=== PATIENT | male | born 1995 | race Caucasian/White ===

== ENCOUNTER 2023-12-29 06:44 | Emergency (ER) | payer OTHER ==
[2023-12-29 08:02] LABS: BILIRUBIN,URINE NEGATIVE (NEGATIVE); GLUCOSE,URINE NORMAL (NORMAL); KETONES,URINE NEGATIVE (NEGATIVE); LEUKOCYTE ESTERASE,URINE SMALL (NEGATIVE); NITRITE,URINE NEGATIVE (NEGATIVE); OCCULT BLOOD,URINE NEGATIVE (NEGATIVE); PROTEIN,URINE NEGATIVE (NEGATIVE); UROBILINOGEN,URINE NORMAL (NEGATIVE)
[2023-12-29 08:02] LABS: HEMATOCRIT 43.5 % (38.3-50.1); MEAN CORPUSCULAR HGB CONC 34.4 g/dL (28.7-35.3); MEAN PLATELET VOLUME 7.8 fL (6.7-11.0); PLATELET COUNT,PLT 211 x10(3)uL (117-477); RED BLOOD CELL COUNT 4.68 x10(6)uL (3.90-5.90); RED CELL DISTRIBUTION WIDTH 12.7 % (12.4-15.0); WHITE BLOOD CELL COUNT,WBC 15.2 x10-3/uL (3.2-10.1)
[2023-12-29 08:03] LABS: BLOOD UREA NITROGEN,BUN 9 mg/dL (7-18); BUN/CREATININE RATIO 8.2 (9-20); CALCIUM 8.8 mg/dL (8.6-10.2); CARBON DIOXIDE,CO2 28 mmol/L (21-32); CHLORIDE,CL 103 mmol/L (100-110); CREATININE 1.1 mg/dL (0.70-1.30); ESTIMATED GFR 93 mL/min (>60); GLUCOSE RANDOM 112 mg/dL (80-116); POTASSIUM,K 3.9 mmol/L (3.5-5.3); SODIUM,NA 140 mmol/L (135-145)
[2023-12-29 08:09] LABS: A/G RATIO 1.2; ALANINE AMINOTRANSFERASE,ALT 42 U/L (12-36); ALBUMIN 3.8 g/dL (3.5-5.2); ALKALINE PHOSPHATASE 88 IU/L (56-112); ASPARTATE AMNIOTRANSFERASE,AST 18 IU/L (5-25); CREATINE KINASE,CK 173 IU/L (60-160); PROTEIN TOTAL,TP 7.1 g/dL (6.0-8.0)
[2023-12-29 08:12] LABS: APPEARANCE,URINE CLEAR (CLEAR); BACTERIA,URINE FEW (NS); COLOR,URINE YELLOW (YELLOW); SQUAMOUS EPITHELIAL CELLS,UR RARE (NS,R,O)
[2023-12-29 08:16] LABS: LYMPHOCYTES PERCENT MAN 14 % (13-37); MONOCYTES PERCENT MAN 6 % (4-12); SEG NEUTROPHILS PERCENT MAN 80 % (46-82)
== END 2023-12-29 08:55 | disposition home or self-care (01) ==
LOC: FB.ED 06:44
DX: N39.0 Urinary tract infection, site not specified (principal); F17.210 Nicotine dependence, cigarettes, uncomplicated
CPT/HCPCS: 36415; 80053; 81001; 82550; 85025; 87086; 87088; 87186; 99283; U0002

== ENCOUNTER 2023-12-29 19:51 | Emergency (ER) | payer OTHER ==
[2023-12-29] MEDS: Ketorolac 30 MG/ML SDV IM ONE (21:04)
[2023-12-29] MEDS: cefTRIAXone 1 GM Vial IM ONE (21:04)
[2023-12-29 21:10] LABS: HEMATOCRIT 43.1 % (38.3-50.1); HEMOGLOBIN 14.7 g/dL (12.9-17.7); MEAN CORPUSCULAR HEMOGLOBIN 31.7 pg (27.0-33.3); MEAN CORPUSCULAR HGB CONC 34.1 g/dL (28.7-35.3); MEAN PLATELET VOLUME 7.5 fL (6.7-11.0); PLATELET COUNT,PLT 183 x10(3)uL (117-477); RED BLOOD CELL COUNT 4.63 x10(6)uL (3.90-5.90); RED CELL DISTRIBUTION WIDTH 12.4 % (12.4-15.0); WHITE BLOOD CELL COUNT,WBC 16.8 x10-3/uL (3.2-10.1)
[2023-12-29 21:18] LABS: BLOOD UREA NITROGEN,BUN 10 mg/dL (7-18); BUN/CREATININE RATIO 8.3 (9-20); CALCIUM 8.8 mg/dL (8.6-10.2); CARBON DIOXIDE,CO2 31 mmol/L (21-32); CHLORIDE,CL 101 mmol/L (100-110); CREATININE 1.2 mg/dL (0.70-1.30); EST CRCL DRUG DOSING (CG) 102.65 mL/min; ESTIMATED GFR 84 mL/min (>60); GLUCOSE RANDOM 115 mg/dL (80-116); POTASSIUM,K 3.6 mmol/L (3.5-5.3); SODIUM,NA 139 mmol/L (135-145)
[2023-12-29 21:25] LABS: ALANINE AMINOTRANSFERASE,ALT 35 U/L (12-36); ALBUMIN 3.5 g/dL (3.5-5.2); ALKALINE PHOSPHATASE 87 IU/L (56-112); ASPARTATE AMNIOTRANSFERASE,AST 19 IU/L (5-25); PROTEIN TOTAL,TP 6.9 g/dL (6.0-8.0)
[2023-12-29 21:34] LABS: BAND PERCENT MAN 6 % (0-6); LYMPHOCYTES PERCENT MAN 12 % (13-37); MONOCYTES PERCENT MAN 5 % (4-12); SEG NEUTROPHILS PERCENT MAN 77 % (46-82)
[2023-12-29 21:37] LABS: CREATINE KINASE,CK 136 IU/L (60-160)
== END 2023-12-29 22:25 | disposition home or self-care (01) ==
LOC: FB.ED 19:51
DX: N30.00 Acute cystitis without hematuria (principal); F17.200 Nicotine dependence, unspecified, uncomplicated; Z79.899 Other long term (current) drug therapy
CPT/HCPCS: 36415; 80053; 82550; 83605; 85025; 86140; 96372; 99284; J0696; J1885